=== PATIENT | female | born 1960 | race Caucasian/White ===

== ENCOUNTER → 2018-07-02 | Outpatient (CLI) | payer BC ==
[~2018-07-02] MED LIST: NF-MAG64T; OMG1KC
--- NOTE | 2018-07-02 12:59 | Diagnostic Imaging Report ---
INDICATION: Screening. TECHNIQUE: The current study was also evaluated with a Computer Aided Detection (CAD) system. 3D tomosynthesis was also performed and reviewed. COMPARISON: 07/02/2016 back through 12/22/2011. FINDINGS: The fibroglandular tissue is heterogeneously dense bilaterally. There are scattered benign type calcifications. There is no dominant mass, spiculated lesion, or suspicious calcification identified. The skin, nipples, and axillae are unremarkable. IMPRESSION: Benign findings. ACR BI-RADS Category 2: Benign findings. Result letter will be mailed to the patient. Note: At least 10% of breast cancer is not imaged by mammography. Dictated by: Dictated on workstation # [id number]
== END ==
LOC: RAD 07:43
PROVIDERS: ATTEND Obstetrics & Gynecology
DX: Z12.31 Encounter for screening mammogram for malignant neoplasm of breast (principal)
CPT/HCPCS: 77067

== ENCOUNTER → 2019-07-18 | Outpatient (CLI) | payer BC ==
--- NOTE | 2019-07-18 12:19 | Diagnostic Imaging Report ---
INDICATION: Routine screening. COMPARISON: Comparison is made with prior mammograms from 07/02/2018 and 07/12/2016. TECHNIQUE: 2-D and 3-D bilateral screening mammography was performed. The current study was also evaluated with a Computer Aided Detection (CAD) system. 3-D tomosynthesis was also performed and reviewed. FINDINGS: Both breasts are heterogeneously dense, limiting the sensitivity of mammography. Benign-appearing calcifications in the medial aspect of the right breast appear to be stable. No mass or malignant-appearing microcalcifications are seen. Axillae are unremarkable. IMPRESSION: No mammographic features suspicious for malignancy are identified. ACR BI-RADS Category 2: Benign findings. Result letter will be mailed to the patient. Note: At least 10% of breast cancer is not imaged by mammography. Dictated by: Dictated on workstation # [id number]
== END ==
LOC: RAD 10:57
PROVIDERS: ATTEND Obstetrics & Gynecology
DX: Z12.31 Encounter for screening mammogram for malignant neoplasm of breast (principal)
CPT/HCPCS: 77067

== ENCOUNTER → 2020-08-18 | Outpatient (CLI) | payer BC ==
--- NOTE | 2020-08-24 11:27 | Diagnostic Imaging Report ---
INDICATION: Routine screening. Comparison is made with prior mammogram from 07/18/2019 and 07/02/2018. 2-D and 3-D bilateral screening mammography was performed with CAD. Both breasts are heterogeneously dense, limiting the sensitivity of mammography. Benign calcifications in both breasts are stable. No new mass or malignant appearing microcalcifications are seen. Axillae are unremarkable. IMPRESSION: BI-RADS Category 2 No mammographic features suspicious for malignancy are identified. ACR BI-RADS Category 2: Benign findings. Result letter will be mailed to the patient. Note: At least 10% of breast cancer is not imaged by mammography. Dictated by: Dictated on workstation # [id number]
== END ==
LOC: RAD 08:00
PROVIDERS: ATTEND Obstetrics & Gynecology
DX: Z12.31 Encounter for screening mammogram for malignant neoplasm of breast (principal)
CPT/HCPCS: 77063; 77067

== ENCOUNTER → 2021-08-06 | Outpatient (CLI) | payer BC ==
--- NOTE | 2021-08-06 13:38 | Diagnostic Imaging Report ---
PROCEDURE: CT sinuses without contrast TECHNIQUE: Multiple contiguous axial images were obtained through the sinuses without the use of intravenous contrast. Coronal and sagittal reformations were then performed. Auto Exposure Controls were utilized during the CT exam to meet ALARA standards for radiation dose reduction. INDICATION: Headache, sinus pain. COMPARISON: None available. FINDINGS: Mild mucosal thickening and opacification is noted associated with the left frontal sinus extending into the left frontoethmoidal recess. The ethmoid air cells are otherwise clear. Minimal mucosal thickening within an inferior right sphenoid sinus. Otherwise, the sphenoid sinuses are clear. The lamina papyracea are intact. The maxillary sinuses are clear. The mastoid air cells and middle ear cavities are clear. Moderate degenerative changes of the bilateral temporomandibular joints. Leftward deviation of the nasal septum with associated small leftward projecting nasal spur. The bilateral ostiomeatal complexes are patent. No acute facial fracture. Minimal degenerative changes within the partially visualized cervical spine. No intracranial midline shift, hydrocephalus, or uncal herniation. The orbits are unremarkable. The muscles of mastication are unremarkable. Parapharyngeal fat is symmetric and well maintained. IMPRESSION: Mild mucosal thickening within the paranasal sinuses as described above without air-fluid level. Scattered osseous degenerative changes, greatest involving the right greater than left temporomandibular joints. Dictated by: Dictated on workstation # [id number]
--- NOTE | 2021-08-06 17:41 | Diagnostic Imaging Report ---
CLINICAL INDICATION: Patient with cervicalgia, right ear pain with headache. Patient has sinus pain along with neck pain. Right-sided pain centered around the ear. Pain started a month ago. EXAM: Axial CT scan of the cervical spine performed without IV contrast. Sagittal and coronal reformatted images are created. Auto Exposure Controls were utilized during the CT exam to meet ALARA standards for radiation dose reduction. COMPARISON: None. FINDINGS: There is no acute cervical spine fracture. There is abnormal kyphosis of the cervical spine posture centered at the C5 level. There are hypertrophic spurs seen throughout the cervical spine and facet arthropathy. There is no significant paraspinal soft tissue abnormality. Visualized upper lung burnett are clear. C1-C2: There are degenerative spurs involving the atlanto-odontoid interval anteriorly. There is no significant central canal stenosis. C2-C3: There is grade 1 anterolisthesis of C2 on C3. There is no pars defect. There is moderate bilateral facet arthropathy/hypertrophy. There is no significant bony central canal narrowing. There is mild right neural foramen narrowing and lnnf-ip-vwonpzfj left neural foramen narrowing. C3-C4: There is grade 1 anterolisthesis of C3 on C4. There is mild loss of disc space height. There is severe right facet arthropathy/hypertrophy and moderate left facet arthropathy. There is no significant bony central canal stenosis. There is mild left neural foramen narrowing and severe right neural foramen narrowing. C4-C5: There is a diffuse disc bulge with ookiurtj-ss-ynvqxu loss of disc space height. There are bilateral uncinate spurs and hypertrophic vertebral body spurs. There is severe left facet arthropathy/hypertrophy and mild right facet arthropathy. There is hcfqfsvb-bc-xmkzkq left neural foramen narrowing and qkja-xb-xwsfqodr right neural foramen narrowing. There is no significant bony central canal narrowing. C5-C6: There is a diffuse disc bulge with fgauprjg-ik-xukpif loss of disc space height. There are bilateral uncinate spurs. There is severe left neural foramen narrowing and vkqpjpxw-ao-bxkirh right neural foramen narrowing. There is mild bony central canal narrowing. C6-C7: There is a diffuse disc bulge and ouvrywsr-jx-tdcgwj loss of disc space height. There are chronic Schmorl's nodes seen with vacuum disc changes. There are bilateral uncinate spurs. There is no significant central canal stenosis. There is mifi-fv-czaxjrtn right neural foramen narrowing and severe left neural foramen narrowing. There is mild bony central canal stenosis. C7-T1: There is mild bilateral facet arthropathy. There is no significant central canal or neural foramen narrowing. IMPRESSION: 1: There is gzgfpsrp-yo-cjmokk multilevel cervical spine degenerative disc disease with no acute cervical spine fracture. 2: There is stair-step grade 1 anterolisthesis of C2 on C3 and C3 on C4, likely degenerative. Dictated by: Dictated on workstation # [id number]
== END ==
LOC: RAD 12:45
PROVIDERS: ATTEND Family Medicine
DX: M47.812 Spondylosis without myelopathy or radiculopathy, cervical region (principal); M47.813 Spondylosis without myelopathy or radiculopathy, cervicothoracic region; J34.89 Other specified disorders of nose and nasal sinuses; M50.223 Other cervical disc displacement at C6-C7 level; M43.12 Spondylolisthesis, cervical region; M48.02 Spinal stenosis, cervical region
CPT/HCPCS: 70486; 72125

== ENCOUNTER → 2021-08-24 | Outpatient (CLI) | payer BC ==
--- NOTE | 2021-08-25 11:32 | Diagnostic Imaging Report ---
EXAMINATION: Digital mammogram bilateral screening with CAD. COMPARISON: This study was compared to the prior exams of 07/18/2020, 07/18/2019, and 07/02/2018. PERSONAL HISTORY: At this time, there are no current complaints. FINDINGS: The fibroglandular tissue in both breasts is dense. This does limit the sensitivity of this exam. Overall, there does not appear to have been any significant change when compared to the prior study. No primary or secondary sign of malignancy is noted. IMPRESSION: There is no radiographic evidence for malignancy. ACR BI-RADS Category 1: Negative. Result letter will be mailed to the patient. Note: At least 10% of breast cancer is not imaged by mammography. Dictated by: Dictated on workstation # [id number]
== END ==
LOC: RAD 12:29
PROVIDERS: ATTEND Obstetrics & Gynecology
DX: Z12.31 Encounter for screening mammogram for malignant neoplasm of breast (principal)
CPT/HCPCS: 77063; 77067